=== PATIENT | male | born 1980 | race Caucasian/White ===

== ENCOUNTER 2016-05-14 15:49 | Inpatient (IN) | payer OTHER ==
[~2016-05-14] VITALS: Ht 165.1 cm; Wt 74.8 kg
[2016-05-14 16:08] VITALS: BP 145/96
[2016-05-14] MEDS ORDERED: AUGMENTIN 500 M1 TAB PO (16:11)
--- NOTE | 2016-05-14 16:30 | NUR ---
Monique caballero in [facility] - 05/14/16 at 1632 by [email or web address] PATIENT LEFT WITHOUT BEING SEEN BY DR. PAUL. NO FURTHER CARE PROVIDED FOR PATIENT.
--- NOTE | 2016-05-14 17:06 | NUR ---
35M BIB FAMILY C/O DOG BITE YESTERDAY, SEEN IN URGENT CARE, STITCHES INTACT; INCREASED PAIN AND SWELLING. PT DENIES N/V/D; SKIN IS PINK/WARM/DRY; AAOX4 WITH EVEN AND STEADY GAIT; LUNGS CLEAR BL; HR EVEN AND REGULAR; PT DENIES ANY FEVER, CP, SOB, OR COUGH AT THIS TIME; PATIENT STATES PAIN OF 0/10 AT THIS TIME; PATIENT POSITIONED FOR COMFORT; HOB ELEVATED; BEDRAILS UP X2; BED DOWN. ER MD MADE AWARE OF PT STATUS.
--- NOTE | 2016-05-14 17:08 | NUR ---
PT STATED WAS BITTEN BY NEIGHBOR'S DOG YESTERDAY; PT STATED ALREADY REPORTED DOG BITE TO [employer]; PT STATES [employer] WAS NOTIFIED THAT NEIGHBOR'S DOG HAS BEEN GOING AROUND TO BITE PEOPLE, AND WERE AT NEIGHBOR'S HOUSE AT TIME OF INCIDENT, SO PT REPORTED DOG BITE IN PERSON; PER PT, DOG HAS ALREADY BEEN TAKEN AWAY BY [employer] AT THIS TIME; PT STATES HAS COPY OF REPORT AT HIM HOME.
[2016-05-14] MEDS ORDERED: fentaNYL 0.05 MG/ML VIAL IM ONE (17:10)
[2016-05-14] MEDS ORDERED: AMPICILLIN/SULBACTAM 1.5 GM VIAL IM ONE (17:10)
[2016-05-14] MEDS ORDERED: NACL 0.9% 1,000 ML IV ONE ×2 (17:50→18:05)
[2016-05-14] MEDS ORDERED: CLINDAMYCIN 600 MG in DEXTROSE 5% 50 ML IV ONE (17:50)
[2016-05-14] MEDS ORDERED: AMPICILLIN/SULBACTAM 3 GM in NACL 0.9% 100 ML IV ONE (18:05)
[2016-05-14] MEDS ORDERED: fentaNYL 0.05 MG/ML VIAL IVP ONE (18:05)
[2016-05-14] MEDS ORDERED: AMPICILLIN/SULBACTAM 3 GM VIAL ONE (18:14)
--- NOTE | 2016-05-14 19:23 | NUR ---
REPORT GIVEN TO ANDREINA ARTHUR.
--- NOTE | 2016-05-14 19:23 | NUR ---
REPORT GIVEN TO ANDREINA ACOSTA; TRANSFER OF CARE AT THIS TIME.
[2016-05-14] MEDS ORDERED: ONDANSETRON 4 MG/2 ML VIAL IVP PRN (19:25)
[2016-05-14] MEDS ORDERED: ACETAMINOPHEN 325 MG TAB PO PRN (19:25)
[2016-05-14] MEDS ORDERED: LORazepam 2 MG/ML VIAL IVP PRN (19:25)
--- NOTE | 2016-05-14 19:26 | NUR ---
REPORT GIVEN TO ANDREINA ACOSTA; TRANSER OF CARE AT THIS TIME.
--- NOTE | 2016-05-14 20:00 | NUR ---
Admitted from [facility] with chief complaint of LEFT ARM PAIN S/P DOG BITE. A 35 y/o. Male, Appropriate. ALERT AWAKE ORIENTED X4. INITIAL ASSESSMENT DONE. NO S/S OF RESPIRATORY DISTRESS OR SOB NOTED. C/O LEFT ARM PAIN D/T CELLULITIS S/P DOG BITE. WILL GIVE PRN PAIN MEDICATION ORDERED. PLAN OF CARE REVIEWED TO PT AND FAMILY AT BEDSIDE AND VERBALIZED UNDERSTANDING. oriented to call light, bed, phone,television, bathroom, smoking policy, visiting hours, procedures, ID bracelet on. Belongings list checked. CALL LIGHT WITHIN REACH. WILL CONTINUE TO MONITOR.
[2016-05-14] MEDS: NACL 0.9% 1,000 ML IV SCH (20:22)
[2016-05-14] MEDS ORDERED: PIPERACILLIN/TAZOBACTAM 3.375 GM VIAL IV ONE (20:23)
[2016-05-14] MEDS: PIPERACILLIN/TAZOBACTAM 3.375 GM in DEXTROSE 5% 50 ML IV SCH (20:23)
[2016-05-14] MEDS: HYDROcodone/APAP 5/325 MG 1 TAB TAB PO PRN (21:12)
[2016-05-15] VITALS: BP 135/82
--- NOTE | 2016-05-15 00:10 | NUR ---
PT IS SLEEPING RIGHT NOW BUT EASILY AROUSABLE. NO S/S OF ANY DISCOMFORT AT THIS TIME. ALL NEEDS ARE ATTENDED. CALL LIGHT WITHIN REACH. WILL CONTINUE TO MONITOR.
[2016-05-15] MEDS: HYDROcodone/APAP 5/325 MG 1 TAB TAB PO PRN ×3 (01:35→12:32)
--- NOTE | 2016-05-15 05:00 | NUR ---
AM CARE RENDERED. BED LINEN CHANGED. INSTRUCTED PT TO REPOSITION. KEPT CLEAN AND DRY. CALL LIGHT WITHIN REACH. WILL CONTINUE TO MONITOR.
[2016-05-15] MEDS: PIPERACILLIN/TAZOBACTAM 3.375 GM in DEXTROSE 5% 50 ML IV SCH (05:34)
[2016-05-15] MEDS: NACL 0.9% 1,000 ML IV SCH (05:35)
--- NOTE | 2016-05-15 07:20 | NUR ---
PT HAS NO S/S OF ANY DISCOMFORT. PLAN OF CARE ENDORSED TO KAVITHA GRANT RN RN AT BEDSIDE FOR CONTINUITY OF CARE.
--- NOTE | 2016-05-15 07:30 | NUR ---
RECEIVED ON BED AWAKE. AAOX4. NO SOB NOTED. NO C/O PAIN AT THIS TIME. IV TO RT HAND PATENT AND INTACT. CHEST CLEAR. ABDOMEN SOFT, BOWEL SOUNDS PRESENT. LEFT FOREARM CELLULITIS NOTED, CLOSED WOUND, STITCHES NOTED. LEFT OPEN TO AIR. INSTRUCTED TO ELEVATE LEFT FOREARM WITH PILLOW. INSTRUCTED PT TO CALL FOR ASSISTANCE, CALL LIGHT WITHIN REACH. PT VERBALIZED UNDERSTANDING.
--- NOTE | 2016-05-15 07:32 | NUR ---
PATIENT HAS BEEN SCREENED AND CATEGORIZED MODERATE NUTRITION RISK. PATIENT WILL BE SEEN WITHIN 3-5 DAYS OF ADMISSION. 05/17/16-05/19/16 MARION DANG MS, RDN
[2016-05-15 08:00] VITALS: BP 135/78
[2016-05-15] MEDS ORDERED: ENOXAPARIN 40 MG/0.4 ML SYR SUBQ SCH (09:00)
[2016-05-15 12:00] VITALS: BP 133/83
[2016-05-15] MEDS ORDERED: PIPER/TAZO 3.375GM/D5W PREMIX 50 ML IV SCH (13:00)
--- NOTE | 2016-05-15 13:00 | NUR ---
PT WANTS TO GO HOME AGAINST MEDICAL ADVICE. RISKS EXPLAINED TO PT, VERBALIZED UNDERSTANDING. AMA FORM SIGNED. PT STATED THERE IS NO PROBLEM REGARDING THE CARE THAT HE IS GETTING HERE. PT STATED THE ISSUE IS PERSONAL AND HE NEEDS TO GO HOME TO TAKE CARE OF VERY IMPORTANT MATTER SOON POSSIBLE. ARE BANDS AND IV REMOVED, CANNULA TIP INTACT. DR. NATARAJAN PAGED, AWAITING FOR CALL BACK.
--- NOTE | 2016-05-15 13:15 | NUR ---
PT IS DISCHARGED FROM [facility] FLOOR IN STABLE CONDITION. AAOX4. AMBULATORY. NO COMPLAINTS MADE. LEFT ARM DOG BITE CLOSED WOUND COVERED WITH GAUZE AND TAPE. PT STATED HE LEFT HIS CAR IN THE ER DEPT. D/C HOME AGAINST MEDICAL ADVICE.
--- NOTE | 2016-05-15 13:20 | NUR ---
DR. JOHNSON HERE MAKING ROUNDS AND IS COVERING FOR DR. NATARAJAN. MADE AWARE OF PT WENT AMA.
--- NOTE | 2016-05-17 09:19 | NUR ---
CM NOTE RETRO REVIEW FAXED TO [facility] (FAX# [phone], ATTN: [facility] #[phone] [id number]) & [facility] (FAX# [phone])
== END 2016-05-15 13:15 | disposition left against medical advice (07) | DRG 383 ==
LOC: MED 15:49 → MTU 18:29
PROVIDERS: ADMIT Hospitalist; ATTEND Hospitalist
DX: L03.114 Cellulitis of left upper limb (principal); Z53.21 Procedure and treatment not carried out due to patient leaving prior to being seen by health care provider; W54.0XXA Bitten by dog, initial encounter

== ENCOUNTER 2019-07-10 14:46 | Emergency (ER) | payer OTHER ==
[~2019-07-10] VITALS: Ht 165.1 cm; Wt 80.3 kg
[~2019-07-10 14:46] MED LIST: AMOX-999 PO
[2019-07-10 14:53] VITALS: BP 141/87
[2019-07-10 16:30] LABS: BASOPHILS # (AUTO) 0.1 K/uL (0.00-0.22); BASOPHILS % (AUTO) 0.5 % (0.0-2.0); EOSINOPHILS # (AUTO) 0.3 K/uL (0-0.4); EOSINOPHILS % (AUTO) 2.6 % (0.0-4.0); HEMATOCRIT 44.8 % (36-52); HEMOGLOBIN 15.3 g/dL (12.0-18.0); LYMPHOCYTES # (AUTO) 1.7 K/uL (2.0-11.5); LYMPHOCYTES % (AUTO) 14.2 % (20.5-51.1); MEAN CORPUSCULAR HEMOGLOBIN 32 pg (27-31); MEAN CORPUSCULAR HGB CONC 34 g/dL (33-37); MEAN CORPUSCULAR VOLUME 93.1 fL (80-94); MONOCYTES # (AUTO) 1.2 K/uL (0.8-1.0); MONOCYTES % (AUTO) 9.9 % (1.7-9.3); NEUTROPHILS # (AUTO) 8.6 K/uL (1.8-7.7); NEUTROPHILS % (AUTO) 72.8 % (42.2-75.2); PLATELET COUNT (AUTO) 298 K/uL (140-450); RED BLOOD CELL COUNT(AUTO) 4.81 MIL/uL (4.20-6.10); RED CELL DISTRIBUTION WIDTH 13.2 % (11.6-13.7); WHITE BLOOD COUNT (AUTO) 11.8 K/uL (4.8-10.8)
[2019-07-10 16:50] LABS: ALBUMIN 3.7 g/dL (3.4-5.0); ANION GAP 11.1 (8-16); CARBON DIOXIDE 28.2 mmol/L (21-32); CREATININE 0.9 mg/dL (0.6-1.3); POTASSIUM 3.3 mmol/L (3.5-5.1); TOTAL BILIRUBIN 0.4 mg/dL (0.0-1.0)
[2019-07-10] MEDS ORDERED: MORPHINE SULFATE 4 MG/ML SYR IVP ONE (18:30)
[2019-07-10] MEDS ORDERED: ONDANSETRON 4 MG/2 ML VIAL IVP ONE (18:30)
[2019-07-10] MEDS ORDERED: MORPHINE SULFATE 2 MG/ML SYR ONE (19:32)
[2019-07-10] MEDS ORDERED: ONDANSETRON 4 MG/2 ML VIAL ONE (19:33)
[2019-07-10 21:24] VITALS: BP 132/88
== END 2019-07-10 21:24 | disposition home or self-care (01) ==
LOC: MED 14:46
DX: K80.80 Other cholelithiasis without obstruction (principal)
CPT/HCPCS: 36415; 74176; 76705; 78445; 80053; 83690; 85025; 96374; 99285; A9510; J2270; Q0092; J2405

== ENCOUNTER 2019-07-30 06:55 | Day surgery (SDC) | payer OTHER ==
[~2019-07-30] VITALS: Ht 165.1 cm; Wt 81.6 kg
[2019-07-30 07:53] LABS: BASOPHILS # (AUTO) 0.1 K/uL (0.00-0.22); BASOPHILS % (AUTO) 0.7 % (0.0-2.0); EOSINOPHILS # (AUTO) 0.3 K/uL (0-0.4); EOSINOPHILS % (AUTO) 3.4 % (0.0-4.0); HEMATOCRIT 44.9 % (36-52); LYMPHOCYTES # (AUTO) 1.7 K/uL (2.0-11.5); LYMPHOCYTES % (AUTO) 20.4 % (20.5-51.1); MEAN CORPUSCULAR HEMOGLOBIN 31 pg (27-31); MEAN CORPUSCULAR HGB CONC 34 g/dL (33-37); MEAN CORPUSCULAR VOLUME 93.8 fL (80-94); MONOCYTES # (AUTO) 0.8 K/uL (0.8-1.0); MONOCYTES % (AUTO) 9.9 % (1.7-9.3); NEUTROPHILS # (AUTO) 5.6 K/uL (1.8-7.7); NEUTROPHILS % (AUTO) 65.6 % (42.2-75.2); PLATELET COUNT (AUTO) 343 K/uL (140-450); RED BLOOD CELL COUNT(AUTO) 4.79 MIL/uL (4.20-6.10); RED CELL DISTRIBUTION WIDTH 13.2 % (11.6-13.7); WHITE BLOOD COUNT (AUTO) 8.5 K/uL (4.8-10.8)
[2019-07-30 09:09] LABS: ALBUMIN 3.8 g/dL (3.4-5.0); ANION GAP 13.9 (8-16); CARBON DIOXIDE 27.3 mmol/L (21-32); POTASSIUM 4.2 mmol/L (3.5-5.1); TOTAL BILIRUBIN 0.3 mg/dL (0.0-1.0)
[2019-07-30] MEDS ORDERED: PROPOFOL 200 MG/20 ML VIAL IV ONE (09:13)
[2019-07-30] MEDS ORDERED: fentaNYL 0.05 MG/ML VIAL ONE (09:13)
[2019-07-30] MEDS ORDERED: DEXAMETHASONE 4 MG/ML VIAL ONE (09:13)
[2019-07-30] MEDS ORDERED: ROCURONIUM 50 MG/5 ML VIAL IV ONE (09:13)
[2019-07-30] MEDS ORDERED: GLYCOPYRROLATE 0.2 MG/ML VIAL ONE (09:13)
[2019-07-30] MEDS ORDERED: MIDAZOLAM 2 MG/2 ML VIAL ONE (09:13)
[2019-07-30] MEDS ORDERED: NEOSTIGMINE 1:1000 10 MG/10 ML VIAL ONE (09:13)
[2019-07-30] MEDS ORDERED: DESFLURANE 240 ML BTL INH ONE (09:13)
[2019-07-30] MEDS ORDERED: ONDANSETRON 4 MG/2 ML VIAL ONE (09:13)
[2019-07-30] MEDS ORDERED: BUPIVACAINE-MPF/EPI 0.25% 30 ML VIAL INJ ONE (09:16)
[2019-07-30] MEDS ORDERED: MEPERIDINE 25 MG/ML SYR IVP PRN (09:55)
[2019-07-30] MEDS ORDERED: ONDANSETRON 4 MG/2 ML VIAL IVP PRN ×2 (09:55→10:55)
[2019-07-30] MEDS ORDERED: LACTATED RINGERS 1,000 ML IV SCH (09:55)
[2019-07-30] MEDS ORDERED: HYDROmorphone 1 MG/ML AMP IVP PRN ×2 (09:55→10:55)
[2019-07-30] MEDS ORDERED: MORPHINE SULFATE 2 MG/ML SYR IVP PRN (10:55)
[2019-07-30] MEDS ORDERED: HYDROcodone/APAP 5/325 MG 1 TAB TAB PO PRN (10:55)
[2019-07-30] MEDS ORDERED: MORPHINE SULFATE 4 MG/ML SYR IV PRN (10:55)
[2019-07-30] MEDS: HYDROmorphone PFS 2 MG/ML SYR ONE ×2 (11:08→11:18)
== END 2019-07-30 12:45 | disposition home or self-care (01) ==
LOC: MMU 06:55 → MDS 06:55
PROVIDERS: ATTEND Surgery
DX: K80.10 Calculus of gallbladder with chronic cholecystitis without obstruction (principal); F17.200 Nicotine dependence, unspecified, uncomplicated; F41.9 Anxiety disorder, unspecified; F32.9 Major depressive disorder, single episode, unspecified
CPT/HCPCS: 36415; 47562; 71045; 80053; 82374; 85025; 86886; 86900; 86901; 93005; J0690; J1100; J1170; J2250; J2405; J2704; J2710; J3010; J3490; J7030; J7060; J7120; Q0092

== ENCOUNTER 2023-02-01 05:55 | Emergency (ER) | payer OTHER ==
[~2023-02-01] VITALS: Ht 165.1 cm; Wt 70.3 kg
[2023-02-01 06:17] VITALS: BP 168/106; PULSE 88; RESP 18; TEMP 97.4; O2SAT 99
[2023-02-01] MEDS ORDERED: KETOROLAC 30 MG/ML VIAL IM ONE (06:30)
[2023-02-01] MEDS ORDERED: IBUP-2213 PO (06:36)
[2023-02-01] MEDS ORDERED: BACITRACIN OINT 500 UNITS/GM PKT TP ONE (07:15)
[2023-02-01 07:21] VITALS: BP 168/106; PULSE 88; RESP 18; TEMP 97.4; O2SAT 99
== END 2023-02-01 07:21 | disposition home or self-care (01) ==
LOC: MED 05:55
DX: S01.81XA Laceration without foreign body of other part of head, initial encounter (principal); I10 Essential (primary) hypertension; Z79.899 Other long term (current) drug therapy; W18.30XA Fall on same level, unspecified, initial encounter; Y93.89 Activity, other specified; Y92.89 Other specified places as the place of occurrence of the external cause; Y99.8 Other external cause status
CPT/HCPCS: 12011; 96372; 99283; J1885